=== PATIENT | female | born 1935 | race Two or more races ===

== ENCOUNTER 2025-03-09 10:38 | Emergency (ER) | payer OTHER ==
[~2025-03-09] VITALS: Ht 160 cm; Wt 72.6 kg
[2025-03-09] MEDS ORDERED: 0.9 % SODIUM CHLORIDE 1,000 ML IV SCH (11:15)
[2025-03-09 12:55] LABS: BASO % 0.4 % (0.1-1.2); EOS # 0.10 (0.04-0.54); EOS % 1.8 % (0.7-7.0); LYMPH # 1.80 (1.18-3.74); LYMPH % 32.0 % (19.3-53.1); MEAN PLATELET VOLUME 9.60 fl (9.4-12.4); MONO # 0.48 (0.24-0.82); MONO % 8.5 % (4.7-12.5); NEUT # 3.22 (1.56-6.13); NEUT % 57.1 % (34.0-71.1); RED CELL DISTRIBUTION WIDTH 15.8 % (11.6-14.4)
[2025-03-09 13:14] LABS: BUN CREA RATIO 15.0 (7.0-25.0); CREATININE SERUM 1.42 mg/dL (0.55-1.02); GFR 34.99; GLUCOSE FASTING 57.0 mg/dL (65-100); OSMOLALITY SERUM 284.0 MOSM/KG (275-295)
[2025-03-09 15:32] LABS: URINE APPEARANCE Clear; URINE BILIRRUBIN Negative (NEGATIVE); URINE BLOOD Negative; URINE COLOR Yellow; URINE KETONE Negative (NEGATIVE); URINE LEUKOCYTE Negative; URINE NITRATE Negative; URINE PROTEIN 30 (NEGATIVE); URINE UROBILINOGEN 0.2 E.U./dl
[2025-03-09 15:35] LABS: URINE BACTERIA 453.4 uL (0.0-1933); URINE EPITHELIAL CELLS 10.1 uL (0.0-38.8); URINE WBC 2.6 uL (0.0-23.2)
[2025-03-09 15:40] LABS: URINE GLUCOSE 500 MG/DL (NEGATIVE)
[2025-03-09 15:41] LABS: URINE CAST 0.87 uL (0.0-1.40); URINE RBC 0.8 uL (0.0-20.8)
== END 2025-03-09 18:47 | disposition home or self-care (01) ==
LOC: ER 10:38
PROVIDERS: Emergency Medicine
DX: K52.9 Noninfective gastroenteritis and colitis, unspecified (principal); Z88.6 Allergy status to analgesic agent
CPT/HCPCS: 36415; 96365; 96366; 99282; J7030